=== PATIENT | male | born 1950 | race Caucasian/White ===

== ENCOUNTER 2022-07-06 06:56 | Day surgery (SDC) | payer OTHER ==
[2022-07-06] MEDS ORDERED: MIDAZOLAM HCL 5 MG/5 ML VIAL ONE (07:44)
[2022-07-06] MEDS ORDERED: MEPERIDINE 50 MG/ML VIAL ONE (07:44)
[2022-07-06 09:55] VITALS: BP_SYST 143
== END 2022-07-06 09:45 | disposition home or self-care (01) ==
LOC: SDS 06:56 → SMU 06:58 → SDS 09:45
PROVIDERS: ATTEND Internal Medicine
DX: R19.4 Change in bowel habit (principal); D12.5 Benign neoplasm of sigmoid colon; D50.9 Iron deficiency anemia, unspecified; Z86.010 Personal history of colon polyps; K57.30 Diverticulosis of large intestine without perforation or abscess without bleeding; K64.8 Other hemorrhoids; I10 Essential (primary) hypertension; E78.5 Hyperlipidemia, unspecified; Z95.1 Presence of aortocoronary bypass graft; Z79.01 Long term (current) use of anticoagulants; Z79.899 Other long term (current) drug therapy; Z20.822 Contact with and (suspected) exposure to COVID-19
CPT/HCPCS: 45385; 45380; 87426; 82962; 36415; 88305; 99152; G0378; J2250; J2175

== ENCOUNTER 2023-05-18 11:05 | Inpatient (IN) | payer OTHER ==
[~2023-05-18] VITALS: Ht 175.3 cm; Wt 113.4 kg
[2023-05-18 11:13] VITALS: BP_SYST 133; PULSE 104; RESP 19; TEMP 98; O2SAT 99
[2023-05-18] MEDS ORDERED: FUROSEMIDE 40 MG/4 ML VIAL IVP ONE (11:45)
[2023-05-18 12:05] LABS: BASOPHILS % (AUTO) 0.6 % (0.0-2.0); EOSINOPHILS # (AUTO) 0.1 K/uL (0.0-0.4); EOSINOPHILS % (AUTO) 1.1 % (0.0-4.0); HEMATOCRIT 34.9 % (36-54); HEMOGLOBIN 11.7 g/dL (14.0-18.0); LYMPHOCYTES # (AUTO) 0.6 K/uL (1.0-5.5); LYMPHOCYTES % (AUTO) 12.4 % (20.5-51.5); MEAN CORPUSCULAR HEMOGLOBIN 32 pg (27-31); MEAN CORPUSCULAR HGB CONC 34 % (32-36); MEAN CORPUSCULAR VOLUME 95 fL (79.0-98.0); MONOCYTES # (AUTO) 0.5 K/uL (0.0-1.0); MONOCYTES % (AUTO) 10.1 % (1.7-9.3); NEUTROPHILS # (AUTO) 3.9 K/uL (1.8-7.7); NEUTROPHILS % (AUTO) 75.8 % (40.0-70.0); PLATELET COUNT (AUTO) 190 K/uL (130-430); RED BLOOD CELL COUNT(AUTO) 3.68 MIL/uL (4.2-6.2); RED CELL DISTRIBUTION WIDTH 14.1 % (9.0-15.0); WHITE BLOOD COUNT (AUTO) 5.1 K/uL (4.8-10.8)
[2023-05-18 12:19] LABS: ANION GAP 8 (5-15); CALCIUM 8.8 mg/dL (8.4-11.0); CARBON DIOXIDE 28 mmol/L (23-29); CHLORIDE 96 mmol/L (98-107); CREATININE 1.37 mg/dL (0.55-1.30); GLUCOSE 132 mg/dL (74-106); POTASSIUM 4.7 mmol/L (3.5-5.1); SODIUM SERUM 132 mmol/L (136-145); UREA NITROGEN, BLOOD 18 mg/dL (8-21)
[2023-05-18 12:21] LABS: INR 1.2 (0.80-1.20); PROTHROMBIN TIME 12.8 SECS (9.5-12.5)
[2023-05-18 12:26] LABS: ALANINE AMINOTRANSFERASE 30 U/L (12-78); ALBUMIN 3.8 g/dL (3.4-4.8); ASPARTATE AMINOTRANSFERASE 23 U/L (10-37); BILIRUBIN,DIRECT 0.3 mg/dL (0.0-0.3); TOTAL BILIRUBIN 1.1 mg/dL (0.0-1.0); TOTAL PROTEIN, SERUM 6.9 g/dL (6.4-8.3)
[2023-05-18] MEDS ORDERED: CLOP75TA32 PO (17:10)
[2023-05-18] MEDS ORDERED: LIP40 PO (17:10)
[2023-05-18] MEDS ORDERED: METF-379 PO ×2 (17:10)
[2023-05-18] MEDS ORDERED: FER300L PO (17:10)
[2023-05-18] MEDS ORDERED: LOSA-412 PO (17:10)
[2023-05-18] MEDS ORDERED: APIX5TAB PO (17:10)
[2023-05-18] MEDS ORDERED: HYDR-4039 PO (17:10)
[2023-05-18] MEDS ORDERED: VITD2000 PO (17:10)
[2023-05-18] MEDS ORDERED: CARV12.548 PO (17:10)
[2023-05-18] MEDS ORDERED: INSULIN REGULAR, HUMAN 100 UNITS/ML, 3 ML VIAL (humuLIN R) SUBCUT PRN (21:30)
[2023-05-18] MEDS ORDERED: HYDROcodone/ACETAMIN 10-325 MG TAB PO PRN (21:30)
[2023-05-18] MEDS ORDERED: ACETAMINOPHEN 325 MG TABLET PO PRN (21:30)
[2023-05-18] MEDS ORDERED: HYDROcodone/ACETAMIN 5-325 MG TAB (NORCO/ VICODIN) PO PRN (21:30)
[2023-05-18] MEDS ORDERED: NALOXONE HCL 0.4 MG/ML AMP (NARCAN) IVP PRN ×2 (21:30)
[2023-05-18] MEDS ORDERED: ONDANSETRON HCL 4 MG/2 ML VIAL IVP PRN (21:30)
[2023-05-18] MEDS ORDERED: cloNIDine HCL 0.1 MG TABLET PO PRN (23:00)
[2023-05-18] MEDS ORDERED: cloNIDine HCL 0.1 MG TABLET ONE (23:04)
[2023-05-18] MEDS: NORMAL SALINE 5 ML DISP.SYRIN IVF SCH (23:06)
[2023-05-19] MEDS: LORazepam 2 MG/ML VIAL IVP PRN ×4 (01:54→21:43)
[2023-05-19 04:59] LABS: BASOPHILS % (AUTO) 0.7 % (0.0-2.0); EOSINOPHILS # (AUTO) 0.1 K/uL (0.0-0.4); HEMATOCRIT 32.6 % (36-54); HEMOGLOBIN 11.1 g/dL (14.0-18.0); LYMPHOCYTES # (AUTO) 0.7 K/uL (1.0-5.5); LYMPHOCYTES % (AUTO) 13.7 % (20.5-51.5); MEAN CORPUSCULAR HEMOGLOBIN 32 pg (27-31); MEAN CORPUSCULAR HGB CONC 34 % (32-36); MEAN CORPUSCULAR VOLUME 94 fL (79.0-98.0); MONOCYTES # (AUTO) 0.5 K/uL (0.0-1.0); MONOCYTES % (AUTO) 9.8 % (1.7-9.3); NEUTROPHILS # (AUTO) 3.8 K/uL (1.8-7.7); NEUTROPHILS % (AUTO) 73.8 % (40.0-70.0); PLATELET COUNT (AUTO) 190 K/uL (130-430); RED BLOOD CELL COUNT(AUTO) 3.46 MIL/uL (4.2-6.2); RED CELL DISTRIBUTION WIDTH 14.1 % (9.0-15.0); WHITE BLOOD COUNT (AUTO) 5.2 K/uL (4.8-10.8)
[2023-05-19 05:03] LABS: ANION GAP 8 (5-15); CARBON DIOXIDE 28 mmol/L (23-29); CHLORIDE 100 mmol/L (98-107); CREATININE 1.26 mg/dL (0.55-1.30); GLUCOSE 136 mg/dL (74-106); PHOSPHORUS 3.8 mg/dL (2.7-4.5); POTASSIUM 4.6 mmol/L (3.5-5.1); SODIUM SERUM 136 mmol/L (136-145); UREA NITROGEN, BLOOD 18 mg/dL (8-21)
[2023-05-19] MEDS: NORMAL SALINE 5 ML DISP.SYRIN IVF SCH ×3 (06:03→21:44)
[2023-05-19] MEDS ORDERED: LORazepam 2 MG/ML VIAL ONE ×2 (06:32→11:58)
[2023-05-19] MEDS ORDERED: hydrALAZINE HCL 25 MG TABLET PO SCH (09:00)
[2023-05-19] MEDS ORDERED: CHOLECALCIFEROL (VITAMIN D3) 2,000 UNIT TABLET PO SCH (09:00)
[2023-05-19] MEDS ORDERED: FUROSEMIDE 20 MG/2 ML VIAL IVP SCH (09:00)
[2023-05-19] MEDS ORDERED: LOSARTAN POTASSIUM 25 MG TABLET PO SCH (09:00)
[2023-05-19] MEDS: CARVEDILOL 12.5 MG TABLET (COREG) PO SCH ×2 (10:29→21:12)
[2023-05-19] MEDS: APIXABAN 2.5 MG TABLET PO SCH ×2 (10:30→21:20)
[2023-05-19] MEDS: metFORMIN HCL 500 MG TABLET PO SCH ×2 (10:31→17:22)
[2023-05-19] MEDS: FERROUS SULFATE 300 MG/5 ML UDC PO SCH (10:49)
[2023-05-19] MEDS: CLOPIDOGREL BISULFATE 75 MG TABLET PO SCH (10:57)
[2023-05-19] MEDS ORDERED: hydrALAZINE HCL 20 MG/ML VIAL IVP PRN (11:15)
[2023-05-19] MEDS ORDERED: FUROSEMIDE 40 MG/4 ML VIAL IVP ONE (14:00)
[2023-05-19] MEDS ORDERED: SPIRONOLACTONE 25 MG TABLET (ALDACTONE) PO ONE (14:00)
[2023-05-19] MEDS ORDERED: FUROSEMIDE 40 MG/4 ML VIAL ONE (14:09)
[2023-05-19 16:07] VITALS: BP_SYST 136; PULSE 120; RESP 24; TEMP 97.5
[2023-05-19 16:30] VITALS: O2SAT 98
[2023-05-19] MEDS: FUROSEMIDE 40 MG/4 ML VIAL IVP SCH (17:24)
[2023-05-19] MEDS ORDERED: DIGOXIN 0.5 MG/2 ML AMP IVP ONE (20:15)
[2023-05-19 21:00] VITALS: BP_SYST 135; PULSE 129; RESP 20; TEMP 99.1; O2SAT 96
[2023-05-19 21:08] LABS: BILIRUBIN,URINE NEGATIVE (NEGATIVE); BLOOD, URINE NEGATIVE (NEGATIVE); CLARITY/URINE CLEAR (CLEAR); GLUCOSE,URINE NEGATIVE (NEGATIVE); KETONES,URINE NEGATIVE (NEGATIVE); LEUKOCYTE ESTERASE ,URINE NEGATIVE (NEGATIVE); NITRITE, URINE NEGATIVE (NEGATIVE); PROTEIN URINE NEGATIVE (NEGATIVE); UROBILINOGEN,URINE 0.2 (0.2-1.0)
[2023-05-19 21:10] LABS: COLOR,URINE STRAW (YELLOW)
[2023-05-19] MEDS: LOSARTAN POTASSIUM 25 MG TABLET PO SCH (21:13)
[2023-05-19] MEDS: ATORVASTATIN 20 MG TABLET PO SCH (21:15)
[2023-05-20 00:01] VITALS: PULSE 100; RESP 20; TEMP 98.9; O2SAT 95
[2023-05-20] MEDS: LORazepam 2 MG/ML VIAL IVP PRN ×3 (03:20→22:37)
[2023-05-20 06:48] LABS: BASOPHILS % (AUTO) 0.8 % (0.0-2.0); EOSINOPHILS # (AUTO) 0.1 K/uL (0.0-0.4); EOSINOPHILS % (AUTO) 2.5 % (0.0-4.0); HEMATOCRIT 33.6 % (36-54); HEMOGLOBIN 11.6 g/dL (14.0-18.0); LYMPHOCYTES # (AUTO) 0.7 K/uL (1.0-5.5); LYMPHOCYTES % (AUTO) 14.2 % (20.5-51.5); MEAN CORPUSCULAR HEMOGLOBIN 32 pg (27-31); MEAN CORPUSCULAR HGB CONC 34 % (32-36); MEAN CORPUSCULAR VOLUME 94 fL (79.0-98.0); MONOCYTES # (AUTO) 0.5 K/uL (0.0-1.0); MONOCYTES % (AUTO) 10.7 % (1.7-9.3); NEUTROPHILS # (AUTO) 3.6 K/uL (1.8-7.7); NEUTROPHILS % (AUTO) 71.8 % (40.0-70.0); PLATELET COUNT (AUTO) 179 K/uL (130-430); RED BLOOD CELL COUNT(AUTO) 3.56 MIL/uL (4.2-6.2); RED CELL DISTRIBUTION WIDTH 13.8 % (9.0-15.0)
[2023-05-20] MEDS: NORMAL SALINE 5 ML DISP.SYRIN IVF SCH ×3 (07:06→22:26)
[2023-05-20 07:24] LABS: ALANINE AMINOTRANSFERASE 27 U/L (12-78); ALBUMIN 3.4 g/dL (3.4-4.8); ANION GAP 9 (5-15); ASPARTATE AMINOTRANSFERASE 22 U/L (10-37); CARBON DIOXIDE 30 mmol/L (23-29); CHLORIDE 99 mmol/L (98-107); CREATININE 1.23 mg/dL (0.55-1.30); GLUCOSE 113 mg/dL (74-106); POTASSIUM 3.7 mmol/L (3.5-5.1); SODIUM SERUM 138 mmol/L (136-145); TOTAL BILIRUBIN 1.4 mg/dL (0.0-1.0); TOTAL PROTEIN, SERUM 6.4 g/dL (6.4-8.3); UREA NITROGEN, BLOOD 16 mg/dL (8-21)
[2023-05-20 08:00] VITALS: BP_SYST 137; PULSE 74; RESP 16; TEMP 96.7; O2SAT 98
[2023-05-20] MEDS: CHOLECALCIFEROL (VITAMIN D3) 5,000 UNIT TABLET PO SCH (10:20)
[2023-05-20] MEDS: CARVEDILOL 12.5 MG TABLET (COREG) PO SCH ×2 (10:22→22:25)
[2023-05-20] MEDS: APIXABAN 2.5 MG TABLET PO SCH ×2 (10:24→22:26)
[2023-05-20] MEDS: LOSARTAN POTASSIUM 25 MG TABLET PO SCH ×2 (10:26→22:24)
[2023-05-20] MEDS: SPIRONOLACTONE 25 MG TABLET (ALDACTONE) PO SCH (10:26)
[2023-05-20] MEDS: CLOPIDOGREL BISULFATE 75 MG TABLET PO SCH (10:27)
[2023-05-20] MEDS: FERROUS SULFATE 300 MG/5 ML UDC PO SCH (10:28)
[2023-05-20] MEDS: FUROSEMIDE 40 MG/4 ML VIAL IVP SCH ×2 (10:32→17:34)
[2023-05-20] MEDS: metFORMIN HCL 500 MG TABLET PO SCH ×2 (10:55→17:34)
[2023-05-20 11:05] VITALS: BP_SYST 104; PULSE 100; RESP 16; TEMP 96.8; O2SAT 91
[2023-05-20 15:00] VITALS: BP_SYST 109; PULSE 99; RESP 16; TEMP 97.5; O2SAT 98
[2023-05-20 20:00] VITALS: BP_SYST 125; PULSE 70; RESP 18; TEMP 97.7; O2SAT 70
[2023-05-20] MEDS: ATORVASTATIN 20 MG TABLET PO SCH (22:25)
[2023-05-21 01:36] VITALS: BP_SYST 116; PULSE 97; RESP 18; TEMP 97.7; O2SAT 98
[2023-05-21] MEDS: NORMAL SALINE 5 ML DISP.SYRIN IVF SCH (06:36)
[2023-05-21 08:08] LABS: ANION GAP 7 (5-15); CALCIUM 8.5 mg/dL (8.4-11.0); CARBON DIOXIDE 33 mmol/L (23-29); CHLORIDE 95 mmol/L (98-107); CREATININE 1.14 mg/dL (0.55-1.30); GLUCOSE 106 mg/dL (74-106); POTASSIUM 3.5 mmol/L (3.5-5.1); SODIUM SERUM 135 mmol/L (136-145); UREA NITROGEN, BLOOD 13 mg/dL (8-21)
[2023-05-21 08:11] LABS: BASOPHILS % (AUTO) 0.6 % (0.0-2.0); EOSINOPHILS # (AUTO) 0.1 K/uL (0.0-0.4); EOSINOPHILS % (AUTO) 2.7 % (0.0-4.0); HEMATOCRIT 36.7 % (36-54); HEMOGLOBIN 12.7 g/dL (14.0-18.0); LYMPHOCYTES # (AUTO) 0.8 K/uL (1.0-5.5); MEAN CORPUSCULAR HEMOGLOBIN 32 pg (27-31); MEAN CORPUSCULAR HGB CONC 35 % (32-36); MEAN CORPUSCULAR VOLUME 94 fL (79.0-98.0); MONOCYTES # (AUTO) 0.6 K/uL (0.0-1.0); MONOCYTES % (AUTO) 11.7 % (1.7-9.3); NEUTROPHILS # (AUTO) 3.8 K/uL (1.8-7.7); PLATELET COUNT (AUTO) 189 K/uL (130-430); RED BLOOD CELL COUNT(AUTO) 3.91 MIL/uL (4.2-6.2); RED CELL DISTRIBUTION WIDTH 13.9 % (9.0-15.0); WHITE BLOOD COUNT (AUTO) 5.4 K/uL (4.8-10.8)
[2023-05-21 08:18] VITALS: BP_SYST 131; PULSE 96; RESP 16; TEMP 96.9; O2SAT 100
[2023-05-21] MEDS: LOSARTAN POTASSIUM 25 MG TABLET PO SCH (10:28)
[2023-05-21] MEDS: CARVEDILOL 12.5 MG TABLET (COREG) PO SCH (10:28)
[2023-05-21] MEDS: SPIRONOLACTONE 25 MG TABLET (ALDACTONE) PO SCH (10:28)
[2023-05-21] MEDS: CHOLECALCIFEROL (VITAMIN D3) 5,000 UNIT TABLET PO SCH (10:28)
[2023-05-21] MEDS ORDERED: SPIR25TA PO (10:32)
[2023-05-21] MEDS ORDERED: FURO-149 PO (10:32)
[2023-05-21] MEDS: FERROUS SULFATE 300 MG/5 ML UDC PO SCH (10:32)
[2023-05-21] MEDS ORDERED: LOSA-412 PO (10:32)
[2023-05-21] MEDS: CLOPIDOGREL BISULFATE 75 MG TABLET PO SCH (10:42)
[2023-05-21] MEDS: metFORMIN HCL 500 MG TABLET PO SCH (10:42)
[2023-05-21] MEDS: APIXABAN 2.5 MG TABLET PO SCH (10:43)
[2023-05-21] MEDS: FUROSEMIDE 40 MG/4 ML VIAL IVP SCH (10:48)
[2023-05-21 11:30] VITALS: BP_SYST 111; PULSE 118; RESP 18; TEMP 98.3; O2SAT 98
[2023-05-21 14:44] VITALS: BP_SYST 111; PULSE 108; RESP 18; TEMP 98.3; O2SAT 98
== END 2023-05-21 15:35 | disposition home or self-care (01) | DRG 291 ==
LOC: SED 11:05 → STU 15:03 → SMU 05-20 18:41
PROVIDERS: ADMIT Preventive Medicine Preventive Medicine/Occupational Environmental Medicine; ATTEND Preventive Medicine Preventive Medicine/Occupational Environmental Medicine
DX: I11.0 Hypertensive heart disease with heart failure (principal); I50.23 Acute on chronic systolic (congestive) heart failure; J96.21 Acute and chronic respiratory failure with hypoxia; E87.1 Hypo-osmolality and hyponatremia; D64.9 Anemia, unspecified; E11.65 Type 2 diabetes mellitus with hyperglycemia; E55.9 Vitamin D deficiency, unspecified; E78.5 Hyperlipidemia, unspecified; I25.10 Atherosclerotic heart disease of native coronary artery without angina pectoris; I25.5 Ischemic cardiomyopathy; I48.91 Unspecified atrial fibrillation; E80.6 Other disorders of bilirubin metabolism; Z79.01 Long term (current) use of anticoagulants; Z79.899 Other long term (current) drug therapy; Z86.718 Personal history of other venous thrombosis and embolism; Z87.891 Personal history of nicotine dependence; Z95.1 Presence of aortocoronary bypass graft; Z95.810 Presence of automatic (implantable) cardiac defibrillator; Z88.0 Allergy status to penicillin
CPT/HCPCS: 36415; 71045; 80048; 80053; 80076; 81001; 81003; 82962; 83735; 83880; 84100; 84484; 85025; 85610-TC; 85730-TC; 93005; 93306; 93970; 99285; G0378; J1160; J1940; J2060